=== PATIENT | female | born 1970 | race Caucasian/White ===

== ENCOUNTER 2021-02-04 12:06 | Outpatient (CLI) | payer OTHER | END 2021-02-04 12:07 | disposition home or self-care (01) | LOC: CSHMRI 12:06 | PROVIDERS: ATTEND Orthopaedic Surgery | DX: M25.551 Pain in right hip (principal); G89.29 Other chronic pain ==

== ENCOUNTER 2021-05-16 13:54 | Outpatient (CLI) | payer OTHER | END 2021-05-16 13:55 | disposition home or self-care (01) | LOC: CSHMRI 13:54 | PROVIDERS: ATTEND Orthopaedic Surgery | DX: M25.512 Pain in left shoulder (principal); M71.812 Other specified bursopathies, left shoulder ==

== ENCOUNTER 2022-02-08 14:46 | Outpatient (CLI) | payer OTHER | END 2022-02-08 14:47 | disposition home or self-care (01) | LOC: CSHMAMMO 14:46 | PROVIDERS: ATTEND Student in an Organized Health Care Education/Training Program | DX: Z13.820 Encounter for screening for osteoporosis (principal); M85.88 Other specified disorders of bone density and structure, other site | CPT/HCPCS: 77080 ==

== ENCOUNTER 2022-06-08 07:22 | Emergency (ER) | payer OTHER ==
[2022-06-08] MEDS ORDERED: Ibuprofen 200 MG TAB ONE (07:59)
[2022-06-08] MEDS ORDERED: Lidocaine 5% Patch TD SCH (08:00)
[2022-06-08] MEDS ORDERED: Diazepam 10 MG/2 ML SYRINGE ONE (08:24)
== END 2022-06-08 10:25 | disposition home or self-care (01) ==
LOC: CSHERS 07:22
DX: S23.3XXA Sprain of ligaments of thoracic spine, initial encounter (principal); S23.41XA Sprain of ribs, initial encounter; K21.9 Gastro-esophageal reflux disease without esophagitis; X50.1XXA Overexertion from prolonged static or awkward postures, initial encounter
CPT/HCPCS: 93005; 96372; J3360